=== PATIENT | female | born 1940 | race African-American/Black ===

== ENCOUNTER 2020-11-09 14:54 | Inpatient (IN) ==
[2020-11-09 15:26] VITALS: BMI 29.7
[2020-11-09] MEDS ORDERED: NS 500 ML IV 500 ML IV ONE ×2 (15:55→16:06)
--- NOTE | 2020-11-09 15:59 | DR.GENAD ---
HPI Time Seen Time Seen by Provider: 11/09/20 15:29 PCP Primary Care Physician: David Complaint/Symptoms Chief Complaint:: went to see forging operator, at [facility] in [place] following chest tube removal yesterday. Blood pressure was low at office 80/50, pulse 60 was instructed to come to er by Dr. Hernandez,primary care doctor Self Treatment fo Chief Complaint: regular blood pressure medication Source History Provided: Patient Mode of Arrival Mode of Arrival: Wheelchair Timing Onset of Chief Complaint: 11/07/20 PMH PMH Past Medical History: Yes Past Medical History: Diabetes, Dyslipidemia, Hypertension and Seizures Past Medical History Comment: bleeding on brain 2019 Past Surgical History: Yes Surgical History: Hysterectomy Past Surgical History Comment: chest tube,brain bleed Family History History of Family Medical Conditions: Yes Family Medical History: Diabetes Mellitus, [place] and Hypertension Social History Type of Tobacco Use: Cigarettes Infectious screening In the last 2 months have you had wt loss of >10#?: NO Have you had fever, night sweats or hemotysis?: No Have you traveled outside the country in the last 6 months?: No Isolation: Standard ROS Review of Systems Constitutional: Fatigue Eyes: No Symptoms Reported ENTM: No Symptoms Reported Respiratoy: No Symptoms Reported Cardiovascular: No Symptoms Reported Gastrointestinal/Abdominal: No Symptoms Reported Genitourinary: No Symptoms Reported Neurological: No Symptoms Reported Musculoskeletal: No Symptoms Reported Integumentary: No Symptoms Reported Hematologic/Lymphatic: No Symptoms Reported Endocrine: No Symptoms Reported Psychiatric: No Symptoms Reported All Other Systems: Reviewed and Negative PE Vital Signs Vitals: Temperature 97.8 F Pulse Rate 53 Respiratory Rate 16 Blood Pressure 105/55 O2 Sat by Pulse Oximetry 95 General Limitations: No Limitations General Appearance: Alert, In No Apparent Distress and Other (frail elderly -[place] female) Head Head Exam: Normal Inspection, Atraumatic and Normocephalic Eyes Eye exam: Normal Appearance, PERRL and EOMI ENT ENT Exam: Normal Exam and Normal Oropharynx External Ear Exam: Normal External Inspection Mouth Exam: Normal Inspection; negative Drooling, Trismus, Lip Swelling, Tongue Elevation and Tongue Swelling Throat Exam: Normal Inspection; negative Tonsillar Erythema, Tonsillomegaly, Tonsillar Exudate, R Peritonsillar Mass and L Peritonsillar Mass Neck Neck Exam: Normal Inspection, Full ROM and Trachea Midline Chest Chest Inspection: Normal Inspection and Symmetric Chest Wall Rise; negative Tenderness Respiratory Respiratory Exam: Normal Lung Sounds Bilat; negative Accessory Muscle Use and Chest Wall Tenderness Respiratory Exam: Bilateral: Clear to Auscultation Cardiovascular Cardiovascular Exam: Regular Rate, Normal Rhythm and Normal Heart Sounds Abdominal Exam Abdominal Exam: Normal Inspection, Normal Bowel Sounds and Soft Extremities Extremities Exam: Full ROM and Edema (bilat legs); negative Tenderness Back Back Exam: Normal Inspection, Full ROM and Tenderness Neurologic Neurological Exam: Alert, Oriented X3 and Normal Gait Psychiatric Psychiatric Exam: Normal Affect, Normal Mood and Depressed Skin Skin Exam: Warm, Dry and Intact MDM Differential Diagnosis Differential Diagnosis: dehydration Sepsis Pneumonia CHf [place] COURSE Treatment Treatment: pt asymptomatic at time of d/c BP 105/55 Consultation Consultation Comments: called Dr Hernandez he accepted the patient ROR Labs Reviewed Laboratory Results Reviewed?: Yes Result Diagrams: 11/09/20 16:24 11/09/20 16:24 Laboratory: WBC 4.3 X10^3/uL (3.6-10.0) 11/09/20 16:24 RBC 3.22 X10^6/uL (3.5-5.4) L 11/09/20 16:24 Hgb 9.0 g/dL (12.0-16.0) L 11/09/20 16:24 Hct 26.7 % (36.0-47.0) L 11/09/20 16:24 MCV 83.0 fL (80.0-100.0) 11/09/20 16:24 MCH 27.8 pg (27.0-34.0) 11/09/20 16:24 MCHC 33.5 g/dL (33.0-35.0) 11/09/20 16:24 RDW 14.4 % (11.6-16.5) 11/09/20 16:24 Plt Count 209 X10^3/uL (150.0-450.0) 11/09/20 16:24 MPV 10.5 fL (7.4-11.0) 11/09/20 16:24 Neut % (Auto) 51.4 % (42.0-75.0) 11/09/20 16:24 Lymph % (Auto) 33.5 % (21.0-51.0) 11/09/20 16:24 [place] % (Auto) 8.0 % (0.0-13.0) 11/09/20 16:24 Eos % (Auto) 5.6 % (0.9-2.9) H 11/09/20 16:24 Baso % (Auto) 1.5 % (0.2-1.0) H 11/09/20 16:24 Neut # (Auto) 2.2 x10^3/uL (2.2-4.8) 11/09/20 16:24 Lymph # (Auto) 1.4 X10^3/uL (1.3-2.9) 11/09/20 16:24 [place] # (Auto) 0.3 x10^3/uL (0.3-0.8) 11/09/20 16:24 Eos # (Auto) 0.2 x10^3/uL (0.0-0.2) 11/09/20 16:24 Baso # (Auto) 0.1 X10^3/uL (0.0-0.1) 11/09/20 16:24 Absolute Nucleated RBC 0.0 /100WBC 11/09/20 16:24 PT 14.8 SECONDS (11.8-14.3) 11/09/20 16:24 INR Target Range - 11/09/20 16:24 INR 1.19 (0.8-1.3) 11/09/20 16:24 APTT 32.2 SECONDS (22.9-36.5) 11/09/20 16:24 PTT Comment - 11/09/20 16:24 Sodium 144 mmol/L (136-145) 11/09/20 16:24 Corrected Sodium 146 mmol/L (136-145) H 11/09/20 16:24 Potassium 3.4 mmol/L (3.5-5.1) L 11/09/20 16:24 Chloride 109 mmol/L (98-107) H 11/09/20 16:24 Carbon Dioxide 23.2 mmol/L (21-32) 11/09/20 16:24 BUN 47 mg/dL (7-18) H 11/09/20 16:24 Creatinine 2.28 mg/dL (0.55-1.02) H 11/09/20 16:24 Est GFR (MDRD) Af Amer 26 (>60) L 11/09/20 16:24 Est GFR (MDRD) Non-Af 22 (>60) L 11/09/20 16:24 Glucose 192 mg/dL (65-99) H 11/09/20 16:24 Calcium 9.0 mg/dL (8.5-10.1) 11/09/20 16:24 Corrected Calcium 9.9 mg/dL (8.5-10.1) 11/09/20 16:24 Magnesium 2.1 mg/dL (1.7-2.9) 11/09/20 16:24 Total Bilirubin 0.40 mg/dL (0.2-1.0) 11/09/20 16:24 AST 16 Units/L (15-37) 11/09/20 16:24 ALT 14 Units/L (12-78) 11/09/20 16:24 Alkaline Phosphatase 77 Units/L (46-116) 11/09/20 16:24 Creatine Kinase 46 Units/L (26-192) 11/09/20 16:24 CK-MB (CK-2) < 1.0 ng/mL (0-4.0) 11/09/20 16:24 CK/CKMB % Calc 2.2 % (<4) 11/09/20 16:24 Troponin I < 0.02 ng/mL (0-1.5) 11/09/20 16:24 B-Natriuretic Peptide 263 pg/mL (0-79) H 11/09/20 16:24 Total Protein 5.8 g/dL (6.4-8.2) L 11/09/20 16:24 Albumin 2.9 g/dL (3.4-5.0) L 11/09/20 16:24 Globulin 2.9 g/dL (2.5-4.5) 11/09/20 16:24 Albumin/Globulin Ratio 1.0 Ratio (1.1-2.1) L 11/09/20 16:24 SARS CoV-2 RNA Rapid JAVID Negative (NEGATIVE) 11/09/20 17:30 XRAY X-ray Results: stuble basilar findings EKG Rate: 58 Rhythm: NSR Block: None Hypertrophy: None ST: Normal Opioid Opioid Risk Tool Total: 0 Total Score Risk Category: Low Risk Copyright: [place] predicting aberrant behaviors Diagnosis Discharge Problem: Acute hypotension Instructions Forms: Precautions for COVID19 Patient Portal Social Distancing
--- NOTE | 2020-11-09 16:19 | RAD ---
HISTORYwent to see account liaison hospice, at [facility] in [place] following chest tube removal yesterday. Blood pressure was low at office 80/50, pulse 60 was instructed to come to er by Dr. Hernandez,primary care doctor. had chest tube since 10/25/20TUDYCHEST, 1 VIEWCOMPARISONNoneFINDINGSThe heart is mildly enlarged. The pulmonary vessels are slightly prominent centrally. There is some hazy bibasilar opacities with mild blunting of the left costophrenic sulcus. There is skin fold artifact along the left chest laterally. The bones are intact.IMPRESSIONSkin fold artifact along the left chest limiting the exam with no obvious pneumothorax seen. Recommend a follow-up PA and lateral chest.Mild cardiomegaly and minimal central pulmonary congestion.Mild bibasilar atelectasis or early infiltrates and questionable tiny left pleural effusionElectronically signed by: JUAN COKER (Nov 09, 2020 16:18:07)
[2020-11-09 16:47] LABS: BASOPHILS # (AUTO) 0.1 X10^3/uL (0.0-0.1); BASOPHILS % (AUTO) 1.5 % (0.2-1.0); EOSINOPHILS # (AUTO) 0.2 x10^3/uL (0.0-0.2); EOSINOPHILS % (AUTO) 5.6 % (0.9-2.9); HEMATOCRIT 26.7 % (36.0-47.0); LYMPHOCYTES # (AUTO) 1.4 X10^3/uL (1.3-2.9); LYMPHOCYTES % (AUTO) 33.5 % (21.0-51.0); MEAN CORPUSCULAR HEMOGLOBIN 27.8 pg (27.0-34.0); MEAN CORPUSCULAR HGB CONC 33.5 g/dL (33.0-35.0); MEAN PLATELET VOLUME 10.5 fL (7.4-11.0); MONOCYTES # (AUTO) 0.3 x10^3/uL (0.3-0.8); NEUTROPHILS # (AUTO) 2.2 x10^3/uL (2.2-4.8); NEUTROPHILS % (AUTO) 51.4 % (42.0-75.0); PLATELET COUNT 209 X10^3/uL (150.0-450.0); RED BLOOD COUNT 3.22 X10^6/uL (3.5-5.4); RED CELL DISTRIBUTION WIDTH 14.4 % (11.6-16.5); WHITE BLOOD COUNT 4.3 X10^3/uL (3.6-10.0)
[2020-11-09 17:11] LABS: BLOOD UREA NITROGEN 47 mg/dL (7-18); CARBON DIOXIDE 23.2 mmol/L (21-32); CHLORIDE 109 mmol/L (98-107); COR NA(FOR HYPERGLY) 146 mmol/L (136-145); CREATININE 2.28 mg/dL (0.55-1.02); SODIUM 144 mmol/L (136-145); TROPONIN I < 0.02 ng/mL (0-1.5); eGFR NON BLACK RACES 22 (>60)
[2020-11-09 17:15] LABS: ALANINE AMINOTRANSFERASE 14 Units/L (12-78); ALBUMIN 2.9 g/dL (3.4-5.0); ALKALINE PHOSPHATASE 77 Units/L (46-116); ASPARTATE AMINO TRANSFERASE 16 Units/L (15-37); CKMB % 2.2 % (<4); COR CA(FOR HYPOALB) 9.9 mg/dL (8.5-10.1); CREATINE KINASE 46 Units/L (26-192); CREATINE KINASE MB < 1.0 ng/mL (0-4.0); MAGNESIUM 2.1 mg/dL (1.7-2.9); TOTAL PROTEIN 5.8 g/dL (6.4-8.2)
[2020-11-09] MEDS ORDERED: HumuLIN R SUBCUT PRN (19:01)
[2020-11-09] MEDS ORDERED: NS 1000 ML 1,000 ML IV SCH (20:22)
[2020-11-09] MEDS: SNACK - Diabetic Appropriate PO SCH (21:00)
[2020-11-09 21:38] LABS: CKMB % 2.4 % (<4); CREATINE KINASE 42 Units/L (26-192); CREATINE KINASE MB < 1.0 ng/mL (0-4.0); TROPONIN I < 0.02 ng/mL (0-1.5)
[2020-11-09] MEDS: KEPPRA TAB 500 MG PO SCH (22:23)
[2020-11-09] MEDS: NS 1000 ML 1,000 ML IV SCH (22:23)
[2020-11-10 03:08] LABS: CKMB % 3.1 % (<4); CREATINE KINASE 32 Units/L (26-192); CREATINE KINASE MB < 1.0 ng/mL (0-4.0); TROPONIN I < 0.02 ng/mL (0-1.5)
[2020-11-10] MEDS: NS 1000 ML 1,000 ML IV SCH ×3 (06:08→22:55)
[2020-11-10 06:09] LABS: BASOPHILS % (AUTO) 0.5 % (0.2-1.0); EOSINOPHILS # (AUTO) 0.2 x10^3/uL (0.0-0.2); EOSINOPHILS % (AUTO) 6.7 % (0.9-2.9); HEMATOCRIT 24.1 % (36.0-47.0); LYMPHOCYTES # (AUTO) 1.3 X10^3/uL (1.3-2.9); LYMPHOCYTES % (AUTO) 45.9 % (21.0-51.0); MEAN CORPUSCULAR HEMOGLOBIN 27.5 pg (27.0-34.0); MEAN CORPUSCULAR HGB CONC 33.3 g/dL (33.0-35.0); MEAN CORPUSCULAR VOLUME 82.6 fL (80.0-100.0); MEAN PLATELET VOLUME 10.1 fL (7.4-11.0); MONOCYTES # (AUTO) 0.2 x10^3/uL (0.3-0.8); MONOCYTES % (AUTO) 8.6 % (0.0-13.0); NEUTROPHILS # (AUTO) 1.1 x10^3/uL (2.2-4.8); NEUTROPHILS % (AUTO) 38.3 % (42.0-75.0); PLATELET COUNT 183 X10^3/uL (150.0-450.0); RED BLOOD COUNT 2.92 X10^6/uL (3.5-5.4); RED CELL DISTRIBUTION WIDTH 14.1 % (11.6-16.5); WHITE BLOOD COUNT 2.9 X10^3/uL (3.6-10.0)
[2020-11-10 06:28] LABS: ALANINE AMINOTRANSFERASE 8 Units/L (12-78); ALBUMIN 2.4 g/dL (3.4-5.0); ALKALINE PHOSPHATASE 68 Units/L (46-116); ASPARTATE AMINO TRANSFERASE 11 Units/L (15-37); BLOOD UREA NITROGEN 46 mg/dL (7-18); CALCIUM 8.4 mg/dL (8.5-10.1); CARBON DIOXIDE 23.7 mmol/L (21-32); CHLORIDE 109 mmol/L (98-107); COR CA(FOR HYPOALB) 9.7 mg/dL (8.5-10.1); CREATININE 2.04 mg/dL (0.55-1.02); SODIUM 141 mmol/L (136-145); TOTAL PROTEIN 4.9 g/dL (6.4-8.2); eGFR NON BLACK RACES 25 (>60)
[2020-11-10] MEDS ORDERED: LR 1000 ML IV 1,000 ML IV ONE (08:46)
[2020-11-10] MEDS ORDERED: LASIX PO SCH (09:00)
[2020-11-10] MEDS ORDERED: ZESTRIL TAB 40 MG PO SCH ×2 (09:00)
[2020-11-10 09:07] LABS: CKMB % 2.9 % (<4); CREATINE KINASE 35 Units/L (26-192); CREATINE KINASE MB < 1.0 ng/mL (0-4.0); TROPONIN I < 0.02 ng/mL (0-1.5)
[2020-11-10] MEDS: KEPPRA TAB 500 MG PO SCH ×2 (10:01→20:27)
[2020-11-10] MEDS: LIPITOR TAB 20 MG PO SCH (10:03)
[2020-11-10] MEDS: ACTOS PO SCH (10:11)
[2020-11-10] MEDS: ZESTRIL TAB 10 MG PO SCH (10:51)
[2020-11-10 15:10] LABS: CALCIUM 8.7 mg/dL (8.5-10.1); CARBON DIOXIDE 26.9 mmol/L (21-32); CREATININE 2.15 mg/dL (0.55-1.02)
[2020-11-10] MEDS: SNACK - Diabetic Appropriate PO SCH (20:55)
[2020-11-11] MEDS: NS 1000 ML 1,000 ML IV SCH ×4 (04:38→20:23)
[2020-11-11] MEDS: ZESTRIL TAB 10 MG PO SCH (08:04)
[2020-11-11] MEDS: KEPPRA TAB 500 MG PO SCH ×2 (08:04→21:22)
[2020-11-11] MEDS: ACTOS PO SCH (08:04)
[2020-11-11] MEDS: LIPITOR TAB 20 MG PO SCH (08:04)
[2020-11-11 09:59] LABS: BLOOD UREA NITROGEN 42 mg/dL (7-18); CALCIUM 8.2 mg/dL (8.5-10.1); CARBON DIOXIDE 22.7 mmol/L (21-32); CHLORIDE 110 mmol/L (98-107); CREATININE 1.95 mg/dL (0.55-1.02); SODIUM 142 mmol/L (136-145); eGFR NON BLACK RACES 26 (>60)
--- NOTE | 2020-11-11 10:04 | RAD ---
HISTORYFollow-up pleural effusionSTUDYPortable AP [id number]/2020FINDINGSStable cardiac enlargement. The right lung remains grossly clear. There is an indistinct retrocardiac opacity obscuring the descending aorta and diaphragm and costophrenic angle.IMPRESSIONPersistent cardiac enlargement. Slight interval progression of retrocardiac opacity, consistent with any combination of pleural effusion and lower lobe airspace involvement. This may represent atelectasis/pneumonia. Follow-up suggested.Electronically signed by: JOANNA RAY (Nov 11, 2020 10:02:24)
[2020-11-11 10:21] LABS: BASOPHILS % (AUTO) 0.9 % (0.2-1.0); EOSINOPHILS # (AUTO) 0.2 x10^3/uL (0.0-0.2); HEMATOCRIT 23.6 % (36.0-47.0); HEMOGLOBIN 7.7 g/dL (12.0-16.0); LYMPHOCYTES # (AUTO) 1.2 X10^3/uL (1.3-2.9); LYMPHOCYTES % (AUTO) 41.8 % (21.0-51.0); MEAN CORPUSCULAR HEMOGLOBIN 27.1 pg (27.0-34.0); MEAN CORPUSCULAR HGB CONC 32.6 g/dL (33.0-35.0); MEAN CORPUSCULAR VOLUME 83.3 fL (80.0-100.0); MEAN PLATELET VOLUME 10.8 fL (7.4-11.0); MONOCYTES # (AUTO) 0.2 x10^3/uL (0.3-0.8); MONOCYTES % (AUTO) 8.9 % (0.0-13.0); NEUTROPHILS # (AUTO) 1.2 x10^3/uL (2.2-4.8); NEUTROPHILS % (AUTO) 41.4 % (42.0-75.0); PLATELET COUNT 153 X10^3/uL (150.0-450.0); RED BLOOD COUNT 2.83 X10^6/uL (3.5-5.4); RED CELL DISTRIBUTION WIDTH 14.1 % (11.6-16.5); WHITE BLOOD COUNT 2.8 X10^3/uL (3.6-10.0)
[2020-11-11 10:27] LABS: PLATELET MORPHOLOGY COMMENT NORMAL (NORMAL)
[2020-11-11] MEDS ORDERED: ZITHROMAX TAB 250 MG PO ONE (11:09)
--- NOTE | 2020-11-11 11:57 | PCM.PROG ---
Progress Note Progress Note for Day of Date of Exam: 11/11/20 Subjective Subjective: Patient seen at bedside. No acute events overnight. Patient is a poor historian and not able to recall details about what brought her to the hospital. Patient is currently being treated for hypotension, JERALD and anemia. Her BP has improved with IVF and adjusting her BP medications. She was recently treated for pericardial effusion. Repeat echo yesterday showed insignificant amount of pericardial effusion but did mention moderate size pleural effusion. Patient is currently on 2L oxygen and she does not use Oxygen at home. She states she feels better today. Labs: Hgb 7.7 ( down from 8.0) K 3.3 BUN/Cr 42/1.95 CXR: retrocardiac opacity in the lower lobe concerning for atelectasis/pn eumonia. Plan: will start Zithromax and duonebs. Wean O2 as tolerated. Will decrease IVF as patient's blood pressure has improved. Continue lisinopril 10 mg. Normal iron studies and B12 levels. Folic acid low, will add replacement. Monitor AM labs. Replace K. Check stool for blood. Past Medical Family Social History Past Med/Fam/Surg Hx: No changes since H&P Allergies: Allergies No Known Drug Allergies Allergy (Verified 11/09/20 15:09) Review of Systems ROS: No change since H&P Vital Signs and I&O's Vital Signs: Temperature 97.6 F Pulse Rate [Brachial] 45 Pulse Rate 52 Respiratory Rate 18 Blood Pressure [Left Arm] 135/63 Blood Pressure 109/53 O2 Sat by Pulse Oximetry 99 Intake and Output: Intake & Output 11/08/20 11/09/20 11/10/20 11/11/20 23:59 23:59 23:59 23:59 Intake Total 510 / 510 5250 / 5250 852 / 852 Balance 510 / 510 5250 / 5250 852 / 852 Physical Exam Oriented: Normal Eyes: Normal Ear: Normal Respiratory: Generalized and Diminished Cardiovascular: Normal and Edema Auscultation: Bowel Sounds: Normal Tenderness: Normal Skin: Decreased Turgur Musculoskeletal: Normal Psychiatric: Normal Mood Description: Calm Speech Pattern: Clear and Appropriate Laboratory and Diagnostics Result Diagrams: 11/11/20 09:41 11/11/20 09:41 Labs: Laboratory WBC 2.8 X10^3/uL (3.6-10.0) L 11/11/20 09:41 RBC 2.83 X10^6/uL (3.5-5.4) L 11/11/20 09:41 Hgb 7.7 g/dL (12.0-16.0) L 11/11/20 09:41 Hct 23.6 % (36.0-47.0) L 11/11/20 09:41 MCV 83.3 fL (80.0-100.0) 11/11/20 09:41 MCH 27.1 pg (27.0-34.0) 11/11/20 09:41 MCHC 32.6 g/dL (33.0-35.0) L 11/11/20 09:41 RDW 14.1 % (11.6-16.5) 11/11/20 09:41 Plt Count 153 X10^3/uL (150.0-450.0) 11/11/20 09:41 Plt Count Comment Adequate (ADEQUATE) 11/11/20 09:41 MPV 10.8 fL (7.4-11.0) 11/11/20 09:41 Neut % (Auto) 41.4 % (42.0-75.0) L 11/11/20 09:41 Lymph % (Auto) 41.8 % (21.0-51.0) 11/11/20 09:41 [place] % (Auto) 8.9 % (0.0-13.0) 11/11/20 09:41 Eos % (Auto) 7.0 % (0.9-2.9) H 11/11/20 09:41 Baso % (Auto) 0.9 % (0.2-1.0) 11/11/20 09:41 Neut # (Auto) 1.2 x10^3/uL (2.2-4.8) L 11/11/20 09:41 Lymph # (Auto) 1.2 X10^3/uL (1.3-2.9) L 11/11/20 09:41 [place] # (Auto) 0.2 x10^3/uL (0.3-0.8) L 11/11/20 09:41 Eos # (Auto) 0.2 x10^3/uL (0.0-0.2) 11/11/20 09:41 Baso # (Auto) 0.0 X10^3/uL (0.0-0.1) 11/11/20 09:41 Absolute Nucleated RBC 0.2 /100WBC 11/11/20 09:41 Plt Morphology Comment Normal (NORMAL) 11/11/20 09:41 RBC Morphology Normal (NORMAL) 11/11/20 09:41 PT 14.8 SECONDS (11.8-14.3) 11/09/20 16:24 INR Target Range - 11/09/20 16:24 INR 1.19 (0.8-1.3) 11/09/20 16:24 APTT 32.2 SECONDS (22.9-36.5) 11/09/20 16:24 PTT Comment - 11/09/20 16:24 Sodium 142 mmol/L (136-145) 11/11/20 09:41 Corrected Sodium TNP 11/11/20 09:41 Potassium 3.3 mmol/L (3.5-5.1) L 11/11/20 09:41 Chloride 110 mmol/L (98-107) H 11/11/20 09:41 Carbon Dioxide 22.7 mmol/L (21-32) 11/11/20 09:41 BUN 42 mg/dL (7-18) H 11/11/20 09:41 Creatinine 1.95 mg/dL (0.55-1.02) H 11/11/20 09:41 Est GFR (MDRD) Af Amer 32 (>60) L 11/11/20 09:41 Est GFR (MDRD) Non-Af 26 (>60) L 11/11/20 09:41 Glucose 110 mg/dL (65-99) H 11/11/20 09:41 POC Glucose (mg/dL) 84 mg/dL (65-99) 11/11/20 05:23 Calcium 8.2 mg/dL (8.5-10.1) L 11/11/20 09:41 Corrected Calcium 9.7 mg/dL (8.5-10.1) 11/10/20 05:43 Magnesium 2.1 mg/dL (1.7-2.9) 11/09/20 16:24 Iron 54 ug/dL (50-175) 11/10/20 08:29 Transferrin 125 mg/dL (202-364) L 11/10/20 08:29 Ferritin 157 ng/mL (8-252) 11/10/20 08:29 Total Bilirubin 0.30 mg/dL (0.2-1.0) 11/10/20 05:43 AST 11 Units/L (15-37) L 11/10/20 05:43 ALT 8 Units/L (12-78) L 11/10/20 05:43 Alkaline Phosphatase 68 Units/L (46-116) 11/10/20 05:43 Creatine Kinase 35 Units/L (26-192) 11/10/20 08:29 CK-MB (CK-2) < 1.0 ng/mL (0-4.0) 11/10/20 08:29 CK/CKMB % Calc 2.9 % (<4) 11/10/20 08:29 Troponin I < 0.02 ng/mL (0-1.5) 11/10/20 08:29 B-Natriuretic Peptide 170 pg/mL (0-79) H 11/10/20 05:43 Total Protein 4.9 g/dL (6.4-8.2) L 11/10/20 05:43 Albumin 2.4 g/dL (3.4-5.0) L 11/10/20 05:43 Globulin 2.5 g/dL (2.5-4.5) 11/10/20 05:43 Albumin/Globulin Ratio 1.0 Ratio (1.1-2.1) L 11/10/20 05:43 Vitamin B12 328 pg/mL (193-986) 11/10/20 08:29 Folate 6.8 ng/mL (>8.6) L 11/10/20 08:29 SARS CoV-2 RNA Rapid JAVID Negative (NEGATIVE) 11/09/20 17:30 Plan (1) Acute hypotension: Status: Acute (2) Anemia: Status: Acute Qualifiers: Anemia type: unspecified type Qualified Code(s): D64.9 - Anemia, unspecified (3) Acute renal failure (ARF): Status: Acute Qualifiers: Acute renal failure type: unspecified Qualified Code(s): N17.9 - Acute kidney failure, unspecified (4) Moderate sized pleural effusion: Status: Acute (5) Pneumonia: Status: Acute Qualifiers: Laterality: unspecified laterality Lung location: unspecified part of lung Pneumonia type: due to unspecified organism Qualified Code(s): J18.9 - Pneumonia, unspecified organism (6) Hypokalemia: Status: Acute (7) Diabetes: Status: Acute Qualifiers: Diabetes mellitus complication status: without complication Diabetes mellitus halfway insulin use: without halfway use Diabetes mellitus type: type 2 Qualified Code(s): E11.9 - Type 2 diabetes mellitus without complications
[2020-11-11] MEDS: DUONEB 0.5 MG/3 MG (3 mL) NEB SCH ×2 (13:50→20:45)
[2020-11-11] MEDS: FOLIC ACID TAB 1 MG PO SCH (14:07)
[2020-11-11] MEDS: K-DUR TAB 20 MEQ PO SCH (14:07)
[2020-11-11] MEDS: SNACK - Diabetic Appropriate PO SCH (20:30)
[2020-11-12] MEDS: NS 1000 ML 1,000 ML IV SCH ×4 (04:42→21:08)
[2020-11-12 06:16] LABS: BASOPHILS % (AUTO) 0.5 % (0.2-1.0); EOSINOPHILS # (AUTO) 0.2 x10^3/uL (0.0-0.2); EOSINOPHILS % (AUTO) 7.5 % (0.9-2.9); HEMATOCRIT 22.2 % (36.0-47.0); HEMOGLOBIN 7.4 g/dL (12.0-16.0); LYMPHOCYTES # (AUTO) 1.1 X10^3/uL (1.3-2.9); LYMPHOCYTES % (AUTO) 41.3 % (21.0-51.0); MEAN CORPUSCULAR HEMOGLOBIN 27.6 pg (27.0-34.0); MEAN CORPUSCULAR HGB CONC 33.2 g/dL (33.0-35.0); MEAN CORPUSCULAR VOLUME 83.4 fL (80.0-100.0); MEAN PLATELET VOLUME 10.8 fL (7.4-11.0); MONOCYTES # (AUTO) 0.3 x10^3/uL (0.3-0.8); NEUTROPHILS # (AUTO) 1.2 x10^3/uL (2.2-4.8); NEUTROPHILS % (AUTO) 41.7 % (42.0-75.0); PLATELET COUNT 134 X10^3/uL (150.0-450.0); RED BLOOD COUNT 2.67 X10^6/uL (3.5-5.4); RED CELL DISTRIBUTION WIDTH 14.2 % (11.6-16.5); WHITE BLOOD COUNT 2.8 X10^3/uL (3.6-10.0)
[2020-11-12 06:24] LABS: BLOOD UREA NITROGEN 42 mg/dL (7-18); CALCIUM 8.3 mg/dL (8.5-10.1); CHLORIDE 112 mmol/L (98-107); CREATININE 1.86 mg/dL (0.55-1.02); SODIUM 143 mmol/L (136-145); eGFR NON BLACK RACES 28 (>60)
[2020-11-12 06:28] LABS: PLATELET MORPHOLOGY COMMENT NORMAL (NORMAL)
[2020-11-12 06:31] LABS: CARBON DIOXIDE 23.5 mmol/L (21-32)
[2020-11-12] MEDS: FOLIC ACID TAB 1 MG PO SCH (08:16)
[2020-11-12] MEDS: KEPPRA TAB 500 MG PO SCH ×2 (08:16→20:50)
[2020-11-12] MEDS: ACTOS PO SCH (08:16)
[2020-11-12] MEDS: ZITHROMAX TAB 250 MG PO SCH (08:17)
[2020-11-12] MEDS: LIPITOR TAB 20 MG PO SCH (08:17)
[2020-11-12] MEDS: ZESTRIL TAB 10 MG PO SCH (08:17)
[2020-11-12] MEDS: DUONEB 0.5 MG/3 MG (3 mL) NEB SCH ×2 (09:15→20:59)
[2020-11-12] MEDS ORDERED: PROCRIT or EPOGEN VIAL 10,000 UNITS SC ONE (09:34)
[2020-11-12] MEDS: K-DUR TAB 20 MEQ PO SCH (10:05)
--- NOTE | 2020-11-12 12:07 | PCM.PROG ---
Progress Note Progress Note for Day of Date of Exam: 11/12/20 Subjective Subjective: Patient seen at bedside. No acute events overnight. Patient is currently being treated for hypotension, JERALD and anemia. Her BP has improved with IVF and adjusting her BP medications. She was recently treated for pericardial effusion. Patient is currently on 2L oxygen and she does not use Ox ygen at home. She states she feels better today. Patient denies any active bleeding. Labs: Hgb 7.4 ( down from 7.7) K 3.3 BUN/Cr 42/1.86 Anemia panel: normal except low folate FOBT (-) CXR: retrocardiac opacity in the lower lobe concerning for atelectasis/pneumonia. Plan: will give on dose of Epogen to stimulate bone marrow production, monitor Hgb. Continue Zithromax and duonebs. Continue gentle hydration. Monitor AM labs. Past Medical Family Social History Past Med/Fam/Surg Hx: No changes since H&P Allergies: Allergies No Known Drug Allergies Allergy (Verified 11/09/20 15:09) Review of Systems ROS: No change since H&P Vital Signs and I&O's Vital Signs: Temperature 97.6 F Pulse Rate [Brachial] 74 Pulse Rate 71 Respiratory Rate 20 Blood Pressure [Left Arm] 110/66 Blood Pressure 109/53 O2 Sat by Pulse Oximetry 95 Intake and Output: Intake & Output 11/09/20 11/10/20 11/11/20 11/12/20 23:59 23:59 23:59 23:59 Intake Total 510 / 510 5250 / 5250 2505 / 2505 495 / 495 Balance 510 / 510 5250 / 5250 2505 / 2505 495 / 495 Physical Exam Oriented: Normal Eyes: Normal Ear: Normal Respiratory: Generalized and Diminished Cardiovascular: Normal and Edema Auscultation: Bowel Sounds: Normal Tenderness: Normal Skin: Decreased Turgur Musculoskeletal: Normal Psychiatric: Normal Mood Description: Calm Speech Pattern: Clear and Appropriate Laboratory and Diagnostics Result Diagrams: 11/12/20 05:22 11/12/20 05:22 Labs: Laboratory WBC 2.8 X10^3/uL (3.6-10.0) L 11/12/20 05:22 RBC 2.67 X10^6/uL (3.5-5.4) L 11/12/20 05:22 Hgb 7.4 g/dL (12.0-16.0) L 11/12/20 05:22 Hct 22.2 % (36.0-47.0) L 11/12/20 05:22 MCV 83.4 fL (80.0-100.0) 11/12/20 05:22 MCH 27.6 pg (27.0-34.0) 11/12/20 05:22 MCHC 33.2 g/dL (33.0-35.0) 11/12/20 05:22 RDW 14.2 % (11.6-16.5) 11/12/20 05:22 Plt Count 134 X10^3/uL (150.0-450.0) L 11/12/20 05:22 Plt Count Comment Decreased (ADEQUATE) A 11/12/20 05:22 MPV 10.8 fL (7.4-11.0) 11/12/20 05:22 Neut % (Auto) 41.7 % (42.0-75.0) L 11/12/20 05:22 Lymph % (Auto) 41.3 % (21.0-51.0) 11/12/20 05:22 [place] % (Auto) 9.0 % (0.0-13.0) 11/12/20 05:22 Eos % (Auto) 7.5 % (0.9-2.9) H 11/12/20 05:22 Baso % (Auto) 0.5 % (0.2-1.0) 11/12/20 05:22 Neut # (Auto) 1.2 x10^3/uL (2.2-4.8) L 11/12/20 05:22 Lymph # (Auto) 1.1 X10^3/uL (1.3-2.9) L 11/12/20 05:22 [place] # (Auto) 0.3 x10^3/uL (0.3-0.8) 11/12/20 05:22 Eos # (Auto) 0.2 x10^3/uL (0.0-0.2) 11/12/20 05:22 Baso # (Auto) 0.0 X10^3/uL (0.0-0.1) 11/12/20 05:22 Absolute Nucleated RBC 0.1 /100WBC 11/12/20 05:22 Plt Morphology Comment Normal (NORMAL) 11/12/20 05:22 RBC Morphology Normal (NORMAL) 11/12/20 05:22 PT 14.8 SECONDS (11.8-14.3) 11/09/20 16:24 INR Target Range - 11/09/20 16:24 INR 1.19 (0.8-1.3) 11/09/20 16:24 APTT 32.2 SECONDS (22.9-36.5) 11/09/20 16:24 PTT Comment - 11/09/20 16:24 Sodium 143 mmol/L (136-145) 11/12/20 05:22 Corrected Sodium TNP 11/12/20 05:22 Potassium 3.8 mmol/L (3.5-5.1) 11/12/20 05:22 Chloride 112 mmol/L (98-107) H 11/12/20 05:22 Carbon Dioxide 23.5 mmol/L (21-32) 11/12/20 05:22 BUN 42 mg/dL (7-18) H 11/12/20 05:22 Creatinine 1.86 mg/dL (0.55-1.02) H 11/12/20 05:22 Est GFR (MDRD) Af Amer 33 (>60) L 11/12/20 05:22 Est GFR (MDRD) Non-Af 28 (>60) L 11/12/20 05:22 Glucose 86 mg/dL (65-99) 11/12/20 05:22 POC Glucose (mg/dL) 84 mg/dL (65-99) 11/12/20 11:09 Calcium 8.3 mg/dL (8.5-10.1) L 11/12/20 05:22 Corrected Calcium 9.7 mg/dL (8.5-10.1) 11/10/20 05:43 Magnesium 2.1 mg/dL (1.7-2.9) 11/09/20 16:24 Iron 54 ug/dL (50-175) 11/10/20 08:29 Transferrin 125 mg/dL (202-364) L 11/10/20 08:29 Ferritin 157 ng/mL (8-252) 11/10/20 08:29 Total Bilirubin 0.30 mg/dL (0.2-1.0) 11/10/20 05:43 AST 11 Units/L (15-37) L 11/10/20 05:43 ALT 8 Units/L (12-78) L 11/10/20 05:43 Alkaline Phosphatase 68 Units/L (46-116) 11/10/20 05:43 Creatine Kinase 35 Units/L (26-192) 11/10/20 08:29 CK-MB (CK-2) < 1.0 ng/mL (0-4.0) 11/10/20 08:29 CK/CKMB % Calc 2.9 % (<4) 11/10/20 08:29 Troponin I < 0.02 ng/mL (0-1.5) 11/10/20 08:29 B-Natriuretic Peptide 170 pg/mL (0-79) H 11/10/20 05:43 Total Protein 4.9 g/dL (6.4-8.2) L 11/10/20 05:43 Albumin 2.4 g/dL (3.4-5.0) L 11/10/20 05:43 Globulin 2.5 g/dL (2.5-4.5) 11/10/20 05:43 Albumin/Globulin Ratio 1.0 Ratio (1.1-2.1) L 11/10/20 05:43 Vitamin B12 328 pg/mL (193-986) 11/10/20 08:29 Folate 6.8 ng/mL (>8.6) L 11/10/20 08:29 Stool Description 65g brown formed 11/11/20 20:30 Stl Occult Blood (IFOB) Negative (NEGATIVE) 11/11/20 20:30 SARS CoV-2 RNA Rapid JAVID Negative (NEGATIVE) 11/09/20 17:30 Plan (1) Acute hypotension: Status: Acute (2) Anemia: Status: Acute Qualifiers: Anemia type: unspecified type Qualified Code(s): D64.9 - Anemia, unspecified (3) Acute renal failure (ARF): Status: Acute Qualifiers: Acute renal failure type: unspecified Qualified Code(s): N17.9 - Acute kidney failure, unspecified (4) Moderate sized pleural effusion: Status: Acute (5) Pneumonia: Status: Acute Qualifiers: Laterality: unspecified laterality Lung location: unspecified part of lung Pneumonia type: due to unspecified organism Qualified Code(s): J18.9 - Pneumonia, unspecified organism (6) Hypokalemia: Status: Acute (7) Diabetes: Status: Acute Qualifiers: Diabetes mellitus complication status: without complication Diabetes mellitus superintendent [employer] insulin use: without detention use Diabetes mellitus type: type 2 Qualified Code(s): E11.9 - Type 2 diabetes mellitus without complications
[2020-11-12] MEDS: SNACK - Diabetic Appropriate PO SCH (20:00)
[2020-11-13] MEDS: NS 1000 ML 1,000 ML IV SCH ×4 (05:58→22:18)
[2020-11-13 06:14] LABS: BASOPHILS % (AUTO) 0.6 % (0.2-1.0); EOSINOPHILS # (AUTO) 0.3 x10^3/uL (0.0-0.2); EOSINOPHILS % (AUTO) 9.8 % (0.9-2.9); HEMATOCRIT 23.7 % (36.0-47.0); HEMOGLOBIN 7.8 g/dL (12.0-16.0); LYMPHOCYTES # (AUTO) 1.3 X10^3/uL (1.3-2.9); LYMPHOCYTES % (AUTO) 45.5 % (21.0-51.0); MEAN CORPUSCULAR HEMOGLOBIN 27.6 pg (27.0-34.0); MEAN CORPUSCULAR HGB CONC 33.1 g/dL (33.0-35.0); MEAN CORPUSCULAR VOLUME 83.5 fL (80.0-100.0); MEAN PLATELET VOLUME 11.3 fL (7.4-11.0); MONOCYTES # (AUTO) 0.2 x10^3/uL (0.3-0.8); NEUTROPHILS # (AUTO) 1.1 x10^3/uL (2.2-4.8); NEUTROPHILS % (AUTO) 37.1 % (42.0-75.0); PLATELET COUNT 137 X10^3/uL (150.0-450.0); RED BLOOD COUNT 2.84 X10^6/uL (3.5-5.4); RED CELL DISTRIBUTION WIDTH 14.3 % (11.6-16.5); WHITE BLOOD COUNT 2.8 X10^3/uL (3.6-10.0)
[2020-11-13 06:29] LABS: BLOOD UREA NITROGEN 38 mg/dL (7-18); CALCIUM 8.6 mg/dL (8.5-10.1); CHLORIDE 112 mmol/L (98-107); CREATININE 1.63 mg/dL (0.55-1.02); SODIUM 143 mmol/L (136-145); eGFR NON BLACK RACES 32 (>60)
[2020-11-13 06:34] LABS: CARBON DIOXIDE 21.6 mmol/L (21-32)
[2020-11-13 07:12] LABS: PLATELET MORPHOLOGY COMMENT NORMAL (NORMAL)
[2020-11-13 07:13] LABS: HYPOCHROMASIA SLIGHT
[2020-11-13] MEDS: ALBUMIN HUMAN 25%- 100 ML 100 ML IV SCH (08:50)
[2020-11-13] MEDS: ACTOS PO SCH (08:50)
[2020-11-13] MEDS: KEPPRA TAB 500 MG PO SCH ×2 (08:51→20:03)
[2020-11-13] MEDS: FOLIC ACID TAB 1 MG PO SCH (08:51)
[2020-11-13] MEDS: LIPITOR TAB 20 MG PO SCH (08:52)
[2020-11-13] MEDS: ZITHROMAX TAB 250 MG PO SCH (08:52)
[2020-11-13] MEDS: ZESTRIL TAB 10 MG PO SCH (08:52)
[2020-11-13] MEDS: DUONEB 0.5 MG/3 MG (3 mL) NEB SCH ×2 (09:15→20:40)
[2020-11-13] MEDS: APRESOLINE TAB 10 MG PO SCH ×4 (11:01→20:03)
[2020-11-13] MEDS: LASIX PO SCH (11:02)
[2020-11-14] MEDS: NS 1000 ML 1,000 ML IV SCH ×3 (05:42→21:36)
[2020-11-14 06:10] LABS: BASOPHILS % (AUTO) 0.5 % (0.2-1.0); EOSINOPHILS # (AUTO) 0.3 x10^3/uL (0.0-0.2); EOSINOPHILS % (AUTO) 10.4 % (0.9-2.9); HEMATOCRIT 23.5 % (36.0-47.0); HEMOGLOBIN 7.7 g/dL (12.0-16.0); LYMPHOCYTES # (AUTO) 1.1 X10^3/uL (1.3-2.9); MEAN CORPUSCULAR HEMOGLOBIN 27.4 pg (27.0-34.0); MEAN CORPUSCULAR HGB CONC 32.7 g/dL (33.0-35.0); MEAN CORPUSCULAR VOLUME 83.8 fL (80.0-100.0); MEAN PLATELET VOLUME 11.3 fL (7.4-11.0); MONOCYTES # (AUTO) 0.2 x10^3/uL (0.3-0.8); MONOCYTES % (AUTO) 8.2 % (0.0-13.0); NEUTROPHILS # (AUTO) 1.1 x10^3/uL (2.2-4.8); NEUTROPHILS % (AUTO) 40.9 % (42.0-75.0); PLATELET COUNT 122 X10^3/uL (150.0-450.0); RED BLOOD COUNT 2.81 X10^6/uL (3.5-5.4); RED CELL DISTRIBUTION WIDTH 14.3 % (11.6-16.5); WHITE BLOOD COUNT 2.8 X10^3/uL (3.6-10.0)
[2020-11-14 06:44] LABS: ALANINE AMINOTRANSFERASE 8 Units/L (12-78); ALBUMIN 2.3 g/dL (3.4-5.0); ALKALINE PHOSPHATASE 59 Units/L (46-116); ASPARTATE AMINO TRANSFERASE 14 Units/L (15-37); BLOOD UREA NITROGEN 51 mg/dL (7-18); CALCIUM 8.2 mg/dL (8.5-10.1); CARBON DIOXIDE 22.2 mmol/L (21-32); COR CA(FOR HYPOALB) 9.6 mg/dL (8.5-10.1); CREATININE 1.47 mg/dL (0.55-1.02); SODIUM 147 mmol/L (136-145); TOTAL PROTEIN 4.8 g/dL (6.4-8.2); eGFR NON BLACK RACES 36 (>60)
[2020-11-14 07:01] LABS: HYPOCHROMASIA SLIGHT; PLATELET MORPHOLOGY COMMENT NORMAL (NORMAL)
[2020-11-14 07:02] LABS: CHLORIDE 115 mmol/L (98-107)
[2020-11-14] MEDS: ALBUMIN HUMAN 25%- 100 ML 100 ML IV SCH (08:25)
[2020-11-14] MEDS: ACTOS PO SCH (08:28)
[2020-11-14] MEDS: APRESOLINE TAB 10 MG PO SCH ×3 (08:29→21:37)
[2020-11-14] MEDS: LASIX PO SCH (08:29)
[2020-11-14] MEDS: LIPITOR TAB 20 MG PO SCH (08:29)
[2020-11-14] MEDS: ZESTRIL TAB 10 MG PO SCH (08:29)
[2020-11-14] MEDS: ZITHROMAX TAB 250 MG PO SCH (08:30)
[2020-11-14] MEDS: FOLIC ACID TAB 1 MG PO SCH (08:30)
[2020-11-14] MEDS: KEPPRA TAB 500 MG PO SCH ×2 (08:30→21:36)
[2020-11-14] MEDS: DUONEB 0.5 MG/3 MG (3 mL) NEB SCH ×2 (09:20→21:40)
[2020-11-14] MEDS ORDERED: ZESTRIL TAB 10 MG PO ONE (18:32)
[2020-11-15] MEDS: NS 1000 ML 1,000 ML IV SCH ×3 (04:46→12:10)
[2020-11-15] MEDS: APRESOLINE TAB 10 MG PO SCH (05:35)
[2020-11-15 07:07] LABS: BASOPHILS % (AUTO) 0.3 % (0.2-1.0); EOSINOPHILS # (AUTO) 0.3 x10^3/uL (0.0-0.2); EOSINOPHILS % (AUTO) 11.1 % (0.9-2.9); HEMATOCRIT 24.5 % (36.0-47.0); LYMPHOCYTES # (AUTO) 1.2 X10^3/uL (1.3-2.9); LYMPHOCYTES % (AUTO) 41.1 % (21.0-51.0); MEAN CORPUSCULAR HEMOGLOBIN 27.5 pg (27.0-34.0); MEAN CORPUSCULAR HGB CONC 32.9 g/dL (33.0-35.0); MEAN CORPUSCULAR VOLUME 83.7 fL (80.0-100.0); MEAN PLATELET VOLUME 11.3 fL (7.4-11.0); MONOCYTES # (AUTO) 0.2 x10^3/uL (0.3-0.8); MONOCYTES % (AUTO) 6.9 % (0.0-13.0); NEUTROPHILS # (AUTO) 1.2 x10^3/uL (2.2-4.8); NEUTROPHILS % (AUTO) 40.6 % (42.0-75.0); PLATELET COUNT 120 X10^3/uL (150.0-450.0); RED BLOOD COUNT 2.93 X10^6/uL (3.5-5.4); RED CELL DISTRIBUTION WIDTH 14.6 % (11.6-16.5)
[2020-11-15 07:27] LABS: ALANINE AMINOTRANSFERASE 10 Units/L (12-78); ALBUMIN 2.4 g/dL (3.4-5.0); ALKALINE PHOSPHATASE 73 Units/L (46-116); ASPARTATE AMINO TRANSFERASE 10 Units/L (15-37); BLOOD UREA NITROGEN 50 mg/dL (7-18); CALCIUM 8.4 mg/dL (8.5-10.1); CARBON DIOXIDE 23.4 mmol/L (21-32); CHLORIDE 114 mmol/L (98-107); COR CA(FOR HYPOALB) 9.7 mg/dL (8.5-10.1); CREATININE 1.52 mg/dL (0.55-1.02); SODIUM 148 mmol/L (136-145); TOTAL PROTEIN 4.7 g/dL (6.4-8.2); eGFR NON BLACK RACES 35 (>60)
[2020-11-15 08:04] VITALS: BP 147/65
[2020-11-15] MEDS ORDERED: ZESTRIL TAB 20 MG ONE (08:27)
[2020-11-15] MEDS: ZITHROMAX TAB 250 MG PO SCH (08:47)
[2020-11-15] MEDS: LIPITOR TAB 20 MG PO SCH (08:48)
[2020-11-15] MEDS: FOLIC ACID TAB 1 MG PO SCH (08:48)
[2020-11-15] MEDS: KEPPRA TAB 500 MG PO SCH (08:49)
[2020-11-15] MEDS: ACTOS PO SCH (08:49)
[2020-11-15] MEDS: ALBUMIN HUMAN 25%- 100 ML 100 ML IV SCH (08:50)
[2020-11-15] MEDS ORDERED: LR 1000 ML IV 500 ML IV ONE (08:58)
[2020-11-15] MEDS ORDERED: ZESTRIL TAB 20 MG PO SCH (09:00)
[2020-11-15] MEDS: DUONEB 0.5 MG/3 MG (3 mL) NEB SCH (09:30)
[2020-11-15] MEDS: MAGNESIUM SULFATE 1 GRAM/100 mL PREMIX 2 G/200 ML BAG IV SCH ×2 (11:11→12:09)
[2020-11-15] MEDS ORDERED: APRESOLINE TAB 25 MG PO SCH (14:00)
== END 2020-11-15 14:10 | disposition home health service (06) | DRG 682 ==
LOC: ER 15:06 → MED/SURG 15:06
PROVIDERS: ADMIT Internal Medicine; ATTEND Obstetrics & Gynecology Obstetrics
DX: E83.42 Hypomagnesemia; R94.31 Abnormal electrocardiogram [ECG] [EKG]; R79.89 Other specified abnormal findings of blood chemistry; I47.2 Ventricular tachycardia; E86.0 Dehydration; E11.65 Type 2 diabetes mellitus with hyperglycemia; D64.89 Other specified anemias; Z20.828 Contact with and (suspected) exposure to other viral communicable diseases; N17.8 Other acute kidney failure; J90 Pleural effusion, not elsewhere classified; R26.89 Other abnormalities of gait and mobility; I38 Endocarditis, valve unspecified; E87.6 Hypokalemia; J18.8 Other pneumonia, unspecified organism; I95.89 Other hypotension